=== PATIENT | male | born 1960 | race Caucasian/White ===

== ENCOUNTER → 2017-01-29 | Outpatient (CLI) | payer BC ==
[~2017-01-29] MED LIST: AMLO-110 PO; ATOR-22 PO; EFF375 PO; XNX25 PO
--- NOTE | 2017-01-29 09:08 | DIAGNOSTIC IMAGING REPORT ---
ABDOMEN COMPLETE (US) CLINICAL HISTORY: ABD PAIN,BLOATING COMPARISON STUDY: No previous studies for comparison. FINDINGS: The gallbladder appears sonographically normal. The pancreas appears sonographically normal. The spleen appears sonographically normal. The right kidney measures 12.5 cm in length. The left kidney measures 11.6 cm in length. No solid renal masses are visualized. There is no hydronephrosis. There is no evidence of abdominal aortic dilatation. No abnormality IVC are visualized. There is minimal ectasia of the right common iliac artery. The liver is of increased echogenicity, a nonspecific finding most often seen in hepatic steatosis. 3 hypoechoic masses are visualized within the liver. There is a aileen hepatis lesion measuring 4.4 cm. There are 2 right lobe lesions measuring 3.9 cm and 1.6 cm respectively.. Diagnostic considerations include focal fatty sparing versus true pathologic hepatic masses. MRI is recommended in follow-up. IMPRESSION: 1. Hepatic steatosis 2. Three hepatic masses are visualized (focal fatty sparing versus true pathologic hepatic masses). An MRI is recommended in follow-up. Electronically signed by: Jarocho Bruner M.D. 01/29/2017 9:07 AM Dictated Date/Time: 01/29/2017 9:01 AM
[2017-01-29 09:21] LABS: BASO % 0.6 %; BASO ABS # 0.03 K/uL (0-0.2); COMPLETE YES; EOS % 2.7 %; LYMPH % 26.7 %; LYMPH ABS # 1.27 K/uL (1.2-3.4); MEAN CELL VOLUME 86.3 fL (80-100); MEAN CORPUSCULAR HEMOGLOBIN 30.5 pg (25-34); MEAN CORPUSCULAR HGB CONC 35.3 g/dl (32-36); MEAN PLATELET VOLUME 10.1 fL (7.4-10.4); MONO % 7.8 %; NEUT % 62.2 %; PLATELET COUNT 232 K/uL (130-400); RED BLOOD COUNT 4.98 M/uL (4.7-6.1); WHITE BLOOD COUNT 4.75 K/uL (4.8-10.8)
[2017-01-29 09:35] LABS: ALT/SGPT 28 U/L (12-78); AST/SGOT 16 U/L (15-37); BLOOD UREA NITROGEN 15 mg/dl (7-18); BUN/CREATININE RATIO 15.9 (10-20); CALCIUM 9.1 mg/dl (8.5-10.1); CARBON DIOXIDE 29 mmol/L (21-32); CHLORIDE 109 mmol/L (98-107); CREATININE 0.93 mg/dl (0.60-1.40); GLUCOSE 110 mg/dl (70-99); POTASSIUM 3.9 mmol/L (3.5-5.1); SODIUM 145 mmol/L (136-145)
[2017-01-29 09:45] LABS: ESTIMATED AVERAGE GLUCOSE 114 mg/dl; HA1C FLAG Normal (Normal)
[2017-01-29 09:49] LABS: ALB/GLOB RATIO 1.2 (0.9-2); ALKALINE PHOSPHATASE 44 U/L (45-117); CHOLESTEROL 158 mg/dl (0-200); CHOLESTEROL/HDL RATIO 3.2; HDL CHOLESTEROL 49 mg/dl; LDL CHOLESTEROL CALCULATED 74 mg/dl; TRIGLYCERIDES 173 mg/dl (0-150); VERY LOW DENSITY LIPOPROT CALC 35 mg/dl
== END | disposition home or self-care (01) ==
LOC: C.ULTR 07:48
PROVIDERS: ATTEND Family Medicine
DX: R73.09 Other abnormal glucose (principal); E55.9 Vitamin D deficiency, unspecified; D51.9 Vitamin B12 deficiency anemia, unspecified; R10.9 Unspecified abdominal pain; R14.0 Abdominal distension (gaseous); K76.0 Fatty (change of) liver, not elsewhere classified; R16.0 Hepatomegaly, not elsewhere classified

== ENCOUNTER → 2017-02-06 | Outpatient (CLI) | payer BC ==
[~2017-02-06] MED LIST changes: +GADOXETATE DISODIUM IV PRN
--- NOTE | 2017-02-06 09:35 | DIAGNOSTIC IMAGING REPORT ---
MRI OF THE ABDOMEN COMBO CLINICAL HISTORY: Follow-up hepatic lesions seen by ultrasound. COMPARISON STUDY: Abdominal ultrasound dated 01/29/2017. TECHNIQUE: MRI of the abdomen is performed transverse T1 and T2-weighted sequences in the axial and coronal planes. Contrast enhanced sequences were acquired following the IV administration of 10 cc of UV of Eovist. Subtraction imaging was performed. FINDINGS: Lower chest: No pleural effusion is identified. The heart is normal in size. Liver: The liver is top normal in size and normal in contour. The liver demonstrates diffuse drop in signal intensity on the opposed phase images consistent with hepatic steatosis. Geographic sparing is seen adjacent to gallbladder fossa and the falciform ligament. There is a 1.3 cm lesion in hepatic segment and a 2.1 cm lesion in hepatic segment VII. These lesions are T2 hyperintense, T1 hypointense, and demonstrate peripheral arterial postcontrast enhancement with delayed fill-in. These lesions do not retain Eovist on the extended delays. Both lesions show restricted diffusion. Enhancement kinetics are typical for hemangiomas. No intrahepatic biliary ductal dilatation is seen. The hepatic veins and portal veins are patent. Gallbladder: Unremarkable. Spleen: Normal in size and signal intensity. Pancreas: There is a 6 mm ovoid T2 hyperintense nonenhancing lesion seen in the pancreatic head on axial T2 fat-sat image #18. This is typical appearance for a small sidebranch IPMN. The pancreas is otherwise unremarkable. Adrenal glands: Unremarkable. Kidneys: The kidneys are normal in size and without hydronephrosis. The kidneys enhance and excrete symmetrically. Abdominal aorta: Normal in course and caliber. Bowel: Visualized portions of the small bowel and colon show no evidence of obstruction. Peritoneum: There is no abdominal ascites. There is a small fat-containing umbilical hernia. Lymphadenopathy: None. Skeletal structures: Visualized skeletal structures times are normal marrow signal intensity. IMPRESSION: 1. Hepatic steatosis with foci of fatty sparing. 2. There are 2 lesions identified in the right lobe of the liver measuring up to 2.1 cm. The enhancement kinetics are typical for benign hemangiomas. If there is no cancer history these are of doubtful significance. If there is a cancer history consider precautionary 1 year follow-up examination. 3. A 6 mm cystic focus in the pancreatic head is typical in appearance for a small sidebranch IPMN Electronically signed by: Brown Bañuelos M.D. 02/06/2017 9:33 AM Dictated Date/Time: 02/06/2017 9:15 AM
== END | disposition home or self-care (01) ==
LOC: C.MRIBC 07:33
PROVIDERS: ATTEND Family Medicine
DX: R16.0 Hepatomegaly, not elsewhere classified (principal); K76.0 Fatty (change of) liver, not elsewhere classified